=== PATIENT | female | born 1955 | race Caucasian/White ===

== ENCOUNTER → 2016-03-16 | Outpatient (CLI) | payer OTHER ==
--- NOTE | 2016-03-19 09:21 | MM ---
Reason for exam: screening (asymptomatic). Last mammogram was performed 1 year and 1 month ago. History: Patient is postmenopausal. Family history of breast cancer in mother. Benign MG stereo VAD BX RT of the right breast, July 16, 2014. Physical Findings: A clinical breast exam by your physician is recommended on an annual basis and results should be correlated with mammographic findings. MG Screening Mammo w CAD Bilateral CC and MLO view(s) were taken. Prior study comparison: February 02, 2015, bilateral MG 3d diag mammo w/cad [facility]RIC. July 07, 2014, right breast MG diagnostic mammo RT w CAD. The breast tissue is heterogeneously dense. This may lower the sensitivity of mammography. There is chronic nodularity bilaterally. No significant changes when compared with prior studies. ASSESSMENT: Benign, BI-RAD 2 RECOMMENDATION: Routine screening mammogram of both breasts in 1 year.
== END | disposition home or self-care (01) ==
LOC: RADMAMWWP 16:01
PROVIDERS: ATTEND Internal Medicine
DX: Z12.31 Encounter for screening mammogram for malignant neoplasm of breast (principal)

== ENCOUNTER → 2017-06-18 | Outpatient (CLI) | payer OTHER ==
[2017-06-18 15:04] VITALS: BP 150/91; PULSE 91; RESP 12; TEMP 97.5; BMI 30.1
--- NOTE | 2017-06-18 15:47 | P.HPOB ---
History of Present Illness H&P Date: 06/18/17 Chief Complaint: The patient is here for her routine gynecologic exam and mammogram. This is a 62-year-old G to P2 with an LMP of 2003. The patient is without gynecologic complaints and denies any postmenopausal bleeding. Review of Systems She has lost about 5 pounds over the past 2 years. She denies respiratory, cardiac, or G.I. problems. Past Medical History Past Medical History: GERD/Reflux, Hypertension Additional Past Medical History / Comment(s): Legally incapacitated, history of schizophrenia and depression. 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 She did have 2 vaginal deliveries. History of Any Multi-Drug Resistant Organisms: None Reported Past Surgical History: No Surgical Hx Reported Additional Past Surgical History / Comment(s): She is uncertain if she had a colonoscopy in the past. Past Anesthesia/Blood Transfusion Reactions: No Reported Reaction Additional Past Anesthesia/Blood Transfusion Reaction / Comment(s): HAS ONLY HAD COLONOSCOPY Past Psychological History: Depression, Schizophrenia Smoking Status: Current every day smoker (Half a pack of cigarettes per day) Past Alcohol Use History: None Reported Past Drug Use History: None Reported Additional History: She has a guardian. She is and is not seeing anybody at this time and is not sexually active. - Past Family History Father Family Medical History: Cancer (Gastric) Mother Family Medical History: Cancer (Breast), Diabetes Mellitus Medications and Allergies Home Medications Medication Instructions Recorded Confirmed Type Asenapine Maleate [Saphris] 10 mg PO DAILY 05/10/14 02/16/15 History Aspirin 81 mg PO DAILY 05/10/14 02/16/15 History Calcium Acetate [Phoslo] 667 mg PO DAILY 05/10/14 02/16/15 History DULoxetine HCL [Cymbalta] 60 mg PO QAM 05/10/14 02/16/15 History Levothyroxine Sodium [Synthroid] 50 mcg PO QAM 05/10/14 02/16/15 History Lisinopril [Zestril] 5 mg PO QAM 05/10/14 02/16/15 History Multivitamins, Thera [Theragran] 1 each PO DAILY 05/10/14 02/16/15 History Naltrexone HCl [Revia] 50 mg PO DAILY 05/10/14 02/16/15 History [place]-3 Fatty Acids/Fish Oil [Fish 1 tab PO DAILY 05/10/14 02/16/15 History Oil 1,000 mg Softgel] Ranitidine HCl [Zantac] 150 mg PO DAILY 05/10/14 02/16/15 History hydrOXYzine PAMOATE [Vistaril] 25 mg PO DAILY PRN 05/10/14 02/16/15 History Cephalexin [Keflex] 500 mg PO Q12HR #20 cap 02/16/15 Rx Ranitidine HCl [Zantac] BID 06/18/17 History Allergies Allergy/AdvReac Type Severity Reaction Status Date / Time No Known Allergies Allergy Verified 02/16/15 10:55 Exam - Vital Signs Vital signs: Vital Signs Temp Pulse Resp BP 06/18/17 14:52 97.5 F L 91 12 150/91 Intake and Output 06/18/17 06/18/17 06/18/17 06:59 14:59 22:59 Other: Weight 77.111 kg Height 5'3", BMI 30.1. This is a well-developed well-nourished white female who is alert and oriented times 3 in no acute distress. Responses to questions are very fast and short. HEENT: Within normal limits. NECK: Supple without mass or thyromegaly. CHEST AND LUNGS: Clear to auscultation. HEART: Regular rate and rhythm. BREASTS: Are without mass or discharge. AXILLARY EXAM: Negative for adenopathy. BACK: Negative for CVA tenderness. ABDOMEN: Soft, nontender, without palpable masses. PELVIC EXAM: Normal external genitalia with mild atrophy. Cervix and vagina appear normal with mild atrophy. There is no unusual discharge. There is no evidence of prolapse. The uterus is midposition, nongravid size and nontender. There are no palpable adnexal masses or tenderness. RECTAL EXAM: rectovaginal exam is negative for mass or tenderness and is negative for occult blood. EXTREMITIES: Nontender. IMPRESSION: 1. 62-year-old menopausal female with normal gynecologic exam. 2. She is [facility] for her psychiatric management. PLAN: 1. Pap smear was performed. 2. Self breast awareness was discussed. 3. Screening mammogram will be done today. 4. Osteoporosis prevention was discussed. 5. I have recommended screening colonoscopy since she does not believe she had one done in the last 10 years. She will follow-up with Dr. Bocanegra to arrange for this.
--- NOTE | 2017-06-19 11:16 | MM ---
Reason for exam: screening (asymptomatic). Last mammogram was performed 1 year and 3 months ago. History: Patient is postmenopausal. Family history of breast cancer in mother. Benign MG stereo VAD BX RT of the right breast, July 16, 2014. Physical Findings: A clinical breast exam by your physician is recommended on an annual basis and results should be correlated with mammographic findings. MG Screening Mammo w CAD Bilateral CC and MLO view(s) were taken. Prior study comparison: March 16, 2016, bilateral MG screening mammo w CAD. February 02, 2015, bilateral MG 3d diag mammo w/cad [facility]EDR[facility]. The breast tissue is heterogeneously dense. This may lower the sensitivity of mammography. Finding #1: There is a stable mass in the upper outer quadrant, posterior position of the right breast with associated biopsy marker. Finding #2: There are typically benign calcifications in both breasts. No suspicious abnormality. No significant changes in finding since March 16, 2016 and February 02, 2015. ASSESSMENT: Benign, BI-RAD 2 RECOMMENDATION: Routine screening mammogram of both breasts in 1 year.
== END | disposition home or self-care (01) ==
LOC: WWCWWP 14:33
PROVIDERS: ATTEND Obstetrics & Gynecology
DX: Z12.31 Encounter for screening mammogram for malignant neoplasm of breast (principal)
CPT/HCPCS: 77067

== ENCOUNTER 2018-01-24 02:27 | Emergency (ER) | payer OTHER ==
[2018-01-24 02:38] VITALS: BP 153/76; PULSE 75; RESP 18; TEMP 98.3
--- NOTE | 2018-01-24 02:43 | ED ---
Extremity Problem HPI - General Source: RN notes reviewed, old records reviewed <Lexus Lindquist - Last Filed: 01/24/18 03:09> - General Source: patient Mode of arrival: ambulatory Limitations: no limitations <Edith Griffith P - Last Filed: 01/26/18 01:25> - General Chief complaint: Extremity Problem,Nontraumatic Stated complaint: Needs ring removed Time Seen by Provider: 01/24/18 02:43 - Related Data Home Medications Medication Instructions Recorded Confirmed Asenapine Maleate [Saphris] 10 mg PO DAILY 05/10/14 02/16/15 Aspirin 81 mg PO DAILY 05/10/14 02/16/15 Calcium Acetate [Phoslo] 667 mg PO DAILY 05/10/14 02/16/15 DULoxetine HCL [Cymbalta] 60 mg PO QAM 05/10/14 02/16/15 Levothyroxine Sodium [Synthroid] 50 mcg PO QAM 05/10/14 02/16/15 Lisinopril [Zestril] 5 mg PO QAM 05/10/14 02/16/15 Multivitamins, Thera [Theragran] 1 each PO DAILY 05/10/14 02/16/15 Naltrexone HCl [Revia] 50 mg PO DAILY 05/10/14 02/16/15 [place]-3 Fatty Acids/Fish Oil [Fish 1 tab PO DAILY 05/10/14 02/16/15 Oil 1,000 mg Softgel] Ranitidine HCl [Zantac] 150 mg PO DAILY 05/10/14 02/16/15 hydrOXYzine PAMOATE [Vistaril] 25 mg PO DAILY PRN 05/10/14 02/16/15 Ranitidine HCl [Zantac] BID 06/18/17 Previous Rx's Medication Instructions Recorded Cephalexin [Keflex] 500 mg PO Q12HR #20 cap 02/16/15 Allergies Allergy/AdvReac Type Severity Reaction Status Date / Time No Known Allergies Allergy Verified 01/24/18 02:38 Review of Systems ROS Other: All systems not noted in ROS Statement are negative. <Lexus Lindquist - Last Filed: 01/24/18 03:09> ROS Other: All systems not noted in ROS Statement are negative. <Edith Griffith - Last Filed: 01/26/18 01:25> ROS Statement: Those systems with pertinent positive or pertinent negative responses have been documented in the HPI. Past Medical History Past Medical History: GERD/Reflux, Hypertension Additional Past Medical History / Comment(s): Legally incapacitated, history of schizophrenia and depression. 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 She did have 2 vaginal deliveries. History of Any Multi-Drug Resistant Organisms: None Reported Past Surgical History: No Surgical Hx Reported Additional Past Surgical History / Comment(s): She is uncertain if she had a colonoscopy in the past. Past Anesthesia/Blood Transfusion Reactions: No Reported Reaction Additional Past Anesthesia/Blood Transfusion Reaction / Comment(s): HAS ONLY HAD COLONOSCOPY Past Psychological History: Anxiety, Depression, Schizophrenia Smoking Status: Current some day smoker Past Alcohol Use History: None Reported Past Drug Use History: None Reported - Past Family History Father Family Medical History: Cancer (Gastric) Mother Family Medical History: Cancer (Breast), Diabetes Mellitus <Edith Griffith - Last Filed: 01/26/18 01:25> General Exam Limitations: no limitations <Edith Griffith - Last Filed: 01/26/18 01:25> Vital Signs 01/24/18 02:34 Temperature 98.3 F Pulse Rate 75 Respiratory 18 Rate Blood Pressure 153/76 O2 Sat by Pulse 96 Oximetry Medical Decision Making <Lexus Lindquist - Last Filed: 01/24/18 03:09> <Edith Griffith - Last Filed: 01/26/18 01:25> - Medical Decision Making I was available for consultation in the emergency department. The history and physical exam were done by the midlevel provider. I was consulted for this patient's care. I reviewed the case with the midlevel provider and based on their presentation of the patient, I agree with the assessment, medical decision making and plan of care as documented. (Edith Griffith) Disposition Is patient prescribed a controlled substance at d/c from ED?: No Time of Disposition: 03:11 <Lexus Lindquist - Last Filed: 01/24/18 03:09> <Edith Griffith - Last Filed: 01/26/18 01:25> Clinical Impression: Finger swelling Disposition: HOME SELF-CARE Condition: Good Instructions: Swollen Joint (ED) Additional Instructions: Ice the finger for 20 minutes every other hour for the next 1-2 days. Patient should monitor there is any worsening redness or swelling to return to emergency department for reevaluation. Have close follow-up with your primary care physician. Referrals: [facility] [Primary Care Provider] - 1-2 days
== END 2018-01-24 03:15 | disposition home or self-care (01) ==
LOC: EC 02:27
DX: M79.89 Other specified soft tissue disorders (principal); K21.9 Gastro-esophageal reflux disease without esophagitis; I10 Essential (primary) hypertension; F20.9 Schizophrenia, unspecified; F32.9 Major depressive disorder, single episode, unspecified; F41.9 Anxiety disorder, unspecified; F17.200 Nicotine dependence, unspecified, uncomplicated; Z79.82 Long term (current) use of aspirin; Z79.899 Other long term (current) drug therapy
CPT/HCPCS: 99283

== ENCOUNTER → 2018-06-24 | Outpatient (CLI) | payer OTHER ==
--- NOTE | 2018-06-25 09:44 | MM ---
Reason for exam: screening (asymptomatic). Last mammogram was performed 1 year ago. History: Patient is postmenopausal. Family history of breast cancer in mother. Benign MG stereo VAD BX RT of the right breast, July 16, 2014. Physical Findings: A clinical breast exam by your physician is recommended on an annual basis and results should be correlated with mammographic findings. MG Screening Mammo w CAD Bilateral CC and MLO view(s) were taken. Prior study comparison: June 18, 2017, bilateral MG screening mammo w CAD. March 16, 2016, bilateral MG screening mammo w CAD. The breast tissue is heterogeneously dense. This may lower the sensitivity of mammography. Finding #1: There is a 11 mm microlobulated oval mass located 6 cm from the nipple in the posterior middle position of the left breast. Finding #2: There are typically benign round calcifications in both breasts. Previous mammotome biopsy in the right breast. There is a chronic nodularity in the right breast near clip. ASSESSMENT: Incomplete: need additional imaging evaluation, BI-RAD 0 RECOMMENDATION: Special view mammogram of the left breast. If lesion persists on supplemental views, image directed ultrasound is recommended. [facility] will attempt to contact patient to return for supplemental views and ultrasound if indicated.
== END ==
LOC: RADMAMWWP 13:28
PROVIDERS: ATTEND Family Medicine
DX: Z12.31 Encounter for screening mammogram for malignant neoplasm of breast (principal)
CPT/HCPCS: 77067

== ENCOUNTER → 2018-07-03 | Outpatient (CLI) | payer OTHER ==
--- NOTE | 2018-07-04 07:53 | MM ---
Reason for exam: additional evaluation requested from abnormal screening. Last mammogram was performed less than 1 month ago. History: Patient is postmenopausal. Family history of breast cancer in mother. Benign MG stereo VAD BX RT of the right breast, July 16, 2014. Physical Findings: Nurse did not find any significant physical abnormalities on exam. MG Work Up Mamm w CAD LT Spot compression CC, spot compression MLO, and LM view(s) were taken of the left breast. Prior study comparison: June 24, 2018, bilateral MG screening mammo w CAD. June 18, 2017, bilateral MG screening mammo w CAD. The breast tissue is heterogeneously dense. This may lower the sensitivity of mammography. Left upper outer quadrant focal asymmetry persists on additional views although improves on the MLO spot compression. These results were verbally communicated with the patient and result sheet given to the patient on 07/03/18. ASSESSMENT: Incomplete: need additional imaging evaluation, BI-RAD 0 RECOMMENDATION: Ultrasound of the left breast. (upper outer quadrant)
--- NOTE | 2018-07-04 07:56 | USB ---
Reason for exam: additional evaluation requested from abnormal screening. History: Patient is postmenopausal. Family history of breast cancer in mother. Benign MG stereo VAD BX RT of the right breast, July 16, 2014. US Breast Workup Limited LT Left limited breast ultrasound including focal area of concern, retroareolar and axilla demonstrates a 0.4 x 0.3 x 0.4cm lesion too small to characterize at 12 o'clock recommendation to be made after biopsy of the 1 o'clock mass, a 0.5 x 0.3 x 0.5cm mixed lesion at 3 o'clock recommendation to be made after biopsy of the 1 o'clock mass and a 0.4 x 0.3 x 0.4cm hypoechoic lesion at 1 o'clock, corresponds with mammographic findings. These results were verbally communicated with the patient and result sheet given to the patient on 07/03/18. ASSESSMENT: Suspicious, BI-RAD 4 RECOMMENDATION: Ultrasound core biopsy of the left breast. (1 'clock) Called Dr. Harris with mammographic findings and has scheduled an appointment for the patient for 07/09/18 at 9:[address] Yarbrough. PRELIMINARY REPORT CALLED AND FAXED TO DR. YARBROUGH ON 07/04/18.
== END | disposition home or self-care (01) ==
LOC: RADMAMWWP 13:46
PROVIDERS: ATTEND Family Medicine
DX: R92.8 Other abnormal and inconclusive findings on diagnostic imaging of breast (principal)
CPT/HCPCS: 77065

== ENCOUNTER → 2018-07-23 | Day surgery (SDC) | payer OTHER ==
[2018-07-23 13:36] VITALS: RESP 16; BMI 23.3
[2018-07-23 15:09] VITALS: BP 151/73; PULSE 74; TEMP 97.6
--- NOTE | 2018-07-23 15:27 | USB ---
EXAMINATION TYPE: US biopsy breast VAD LT, MG diagnostic mammo LT wo CAD DATE OF EXAM: 07/23/2018 CLINICAL HISTORY: ABNORMAL MAMM R92.8. TECHNIQUE: Ultrasound guided core biopsy of left breast. COMPARISON: Exams dating back to 03/16/2016 FINDINGS: The procedure of ultrasound guided core biopsy was explained to the patient. Benefits, alternatives, and risks were discussed. An informed consent was then obtained. Preprocedural timeout was performed. The patient was placed in supine positioning for imaging and for the procedure. The overlying skin was prepped and draped in usual sterile fashion. 10 cc of 1% lidocaine was used as anesthetic into the skin and subcutaneous tissue up to area of concern in the left breast. Under ultrasound guidance, a 12-gauge vacuum assisted biopsy gun device was used to obtain 6 core samples. Following this, a 2 biopsy markers were marked for biopsy as it was difficult to penetrate penetrate the dense tissue in the biopsy marker appears to be placed approximately 5 mm away from the mass on the ultrasound images. The patient tolerated the procedure well without any immediate complication. The patient was kept in the radiology department for short stay after the procedure and then discharged home in stable condition. Postprocedure mammogram demonstrates the biopsy markers denoting the sonographic abnormality do not correspond to the mammographic abnormality. IMPRESSION: Successful, uncomplicated ultrasound guided core biopsy of area of concern in the left breast, full pathology results to follow. Six-month follow- up left breast ultrasound and diagnostic mammogram would be recommended if biopsy results are negative given the multiple subcentimeter hypoechoic left breast measures on the prior ultrasound and mammographic abnormality. Pathology Results: Benign LEFT BREAST AT ONE O'CLOCK POSITION, NEEDLE CORE BIOPSY FRAGMENTS: Fibrocystic changes including stromal fibrosis with intraductal mineralizations. Recommendation Follow up mammogram and ultrasound of the left breast in 6 months. MTDD
== END ==
LOC: RADUSWWP 13:11
PROVIDERS: ATTEND Surgery
DX: N60.32 Fibrosclerosis of left breast (principal); R92.8 Other abnormal and inconclusive findings on diagnostic imaging of breast; Z88.8 Allergy status to other drugs, medicaments and biological substances
CPT/HCPCS: 88305; 77065; 19083; A4648; J2001

== ENCOUNTER 2020-07-11 09:44 | Emergency (ER) | payer OTHER ==
[2020-07-11 09:52] VITALS: TEMP 98.2
--- NOTE | 2020-07-11 10:06 | ED ---
Upper Extremity HPI - General Chief Complaint: Extremity Injury, Upper Stated Complaint: Fell/Fingers Swelling (Rt Hand) Time Seen by Provider: 07/11/20 10:00 Source: patient Mode of arrival: ambulatory Limitations: no limitations - History of Present Illness Initial Comments: This is a 65-year-old female who states she fell yesterday when she was taking her trash out she fell onto her right hand he complains or right ring finger pain with swelling and ecchymosis. He did have a ring on the right hand which will require removal. She also states she scuffed up both knees he has no other complaints head neck or back pain no other injuries last tetanus shot was within 10 years MD Complaint: Injury to:: right, hand, finger - Related Data Home Medications Medication Instructions Recorded Confirmed Aspirin 81 mg PO DAILY 05/10/14 07/11/20 hydrOXYzine pamoate [Vistaril] 25 mg PO HS 05/10/14 07/11/20 lisinopriL [Zestril] 5 mg PO DAILY 05/10/14 07/11/20 Calcium(Unknown Dose) 1 tab PO BID 07/11/20 07/11/20 Ferrous Sulfate [Feosol] 325 mg PO MOWEFR 07/11/20 07/11/20 Fish Oil(Unknown Dose) 1 cap PO BID 07/11/20 07/11/20 Levothyroxine Sodium 100 mcg PO DAILY 07/11/20 07/11/20 [place] Carbonate 600 mg PO HS 07/11/20 07/11/20 Loperamide [Imodium] 2 mg PO QID PRN 07/11/20 07/11/20 Loratadine 10 mg PO DAILY 07/11/20 07/11/20 Naltrexone HCl [Revia] 50 mg PO DAILY 07/11/20 07/11/20 OLANZapine 20 mg PO HS 07/11/20 07/11/20 Pantoprazole Sodium [Protonix] 40 mg PO DAILY 07/11/20 07/11/20 Allergies Allergy/AdvReac Type Severity Reaction Status Date / Time gabapentin AdvReac Agitation/S Verified 07/11/20 11:07 uicidal Review of Systems ROS Statement: Those systems with pertinent positive or pertinent negative responses have been documented in the HPI. ROS Other: All systems not noted in ROS Statement are negative. Past Medical History Past Medical History: GERD/Reflux, Hyperlipidemia, Hypertension Additional Past Medical History / Comment(s): Legally incapacitated, history of schizophrenia and depression. 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 She did have 2 vaginal deliveries. History of Any Multi-Drug Resistant Organisms: None Reported Past Surgical History: No Surgical Hx Reported Additional Past Surgical History / Comment(s): She is uncertain if she had a colonoscopy in the past. Past Anesthesia/Blood Transfusion Reactions: No Reported Reaction Additional Past Anesthesia/Blood Transfusion Reaction / Comment(s): HAS ONLY HAD COLONOSCOPY Past Psychological History: Anxiety, Depression, Schizophrenia Smoking Status: Current some day smoker Past Alcohol Use History: None Reported Past Drug Use History: None Reported - Past Family History Father Family Medical History: Cancer Mother Family Medical History: Cancer, Diabetes Mellitus General Exam - General Exam Comments Initial Comments: This is a well-developed well-nourished awake alert oriented 3 female demonstrate a [place] Coma Scale of 15 Limitations: no limitations General appearance: alert, in no apparent distress Head exam: Present: atraumatic, normocephalic, normal inspection Eye exam: Present: normal appearance, PERRL, EOMI. Absent: scleral icterus, conjunctival injection, periorbital swelling ENT exam: Present: normal exam Neck exam: Present: normal inspection, full ROM Extremities exam: Present: tenderness, normal capillary refill, other (Ecchymosis seen over the right ring finger with edema decreased range of motion secondary to the pain additionally there is superficial abrasions above the medial aspects of both knees no step-off no crepitation for ecchymosis no knee tenderness palpation no sensorimotor vascular deficits). Absent: full ROM Back exam: Present: full ROM Psychiatric exam: Present: normal affect, normal mood Skin exam: Present: warm, dry. Absent: intact, normal color Course Vital Signs 07/11/20 09:49 Temperature 98.2 F Pulse Rate 70 Respiratory 18 Rate O2 Sat by Pulse 99 Oximetry Medical Decision Making - Medical Decision Making I did discuss the findings with the patient cannot rule out a fracture though I do suspect or maybe in the colon. Patient will be placed in a finger splint instructions for ice elevation and [id number] pain medication. Patient will follow-up with her doctor - Radiology Data Radiology results: report reviewed (Imaging reviewed as well as report no definitive fractures seen 1 Be ruled out however. Soft tissue edema noted.), image reviewed Disposition Clinical Impression: Fall, Contusion of finger of right hand, Finger fracture, right Disposition: HOME SELF-CARE Condition: Good Instructions (If sedation given, give patient instructions): Finger Fracture (ED), Contusion in Adults (ED) Additional Instructions: Ice 24-48 hours, elevation, [id number] pain medication Is patient prescribed a controlled substance at d/c from ED?: No Referrals: Martir Bocanegra MD [Primary Care Provider] - 1-2 days
--- NOTE | 2020-07-11 10:50 | XR ---
Right hand HISTORY: Pain and swelling 3 views of the right hand, correlation previous exam 09/02/2011 Soft tissue swelling is present. Bone mineralization is reduced. There are arthropathy changes at the interphalangeal joints, hypertrophic changes, marginal spurring. Questionable lucency at the lateral aspect of the proximal portion of the middle phalanx of the fourth digit of the right hand, correlat e for point tenderness. No dislocation. Suspect some cystic geode formation in the ulnar styloid, rem odeling of the radiocarpal joint. IMPRESSION: Osteoarthritis. No evident dislocation. Difficult to exclude nondisplaced fracture fourth digit.
[2020-07-11 11:24] VITALS: BP 134/79; PULSE 80; RESP 20
== END 2020-07-11 11:24 | disposition home or self-care (01) ==
LOC: EC 09:44
DX: S62.604A Fracture of unspecified phalanx of right ring finger, initial encounter for closed fracture (principal); S80.212A Abrasion, left knee, initial encounter; S80.211A Abrasion, right knee, initial encounter; E78.5 Hyperlipidemia, unspecified; F32.9 Major depressive disorder, single episode, unspecified; I10 Essential (primary) hypertension; K21.9 Gastro-esophageal reflux disease without esophagitis; W19.XXXA Unspecified fall, initial encounter; Z79.82 Long term (current) use of aspirin
CPT/HCPCS: 99283

== ENCOUNTER → 2021-04-27 | Outpatient (CLI) | payer OTHER ==
--- NOTE | 2021-05-02 12:40 | MM ---
Reason for exam: screening (asymptomatic). Last mammogram was performed 1 year and 8 months ago. History: Patient is postmenopausal. Family history of breast cancer in mother. Benign US biopsy breast VAD LT of the left breast, July 23, 2018. Benign MG stereo VAD BX RT of the right breast, July 16, 2014. Physical Findings: A clinical breast exam by your physician is recommended on an annual basis and results should be correlated with mammographic findings. MG Screening Mammo w CAD Bilateral CC and MLO view(s) were taken. Prior study comparison: September 08, 2019, bilateral MG screening mammo w CAD. March 19, 2019, left breast MG diagnostic mammo LT w CAD. The breast tissue is heterogeneously dense. This may lower the sensitivity of mammography. Previous mammotome biopsy in the right breast and in the left breast x 2. There is chronic nodularity in the right breast. Asymmetric breast tissue in the right breast is stable. There is no discrete abnormality. ASSESSMENT: Benign, BI-RAD 2 RECOMMENDATION: Routine screening mammogram of both breasts in 1 year.
== END | disposition home or self-care (01) ==
LOC: RADMAMWWP 09:44
PROVIDERS: ATTEND Family Medicine
DX: Z12.31 Encounter for screening mammogram for malignant neoplasm of breast (principal)
CPT/HCPCS: 77067

== ENCOUNTER → 2022-08-29 | Outpatient (CLI) | payer MEDICARE ==
--- NOTE | 2022-08-30 08:36 | MM ---
Reason for Exam: Screening (asymptomatic). Last mammogram was performed 1 year(s) and 4 month(s) ago. Patient History: Menarche at age 13. First Full-Term at age 30. Postmenopausal. 07/23/2018, Benign Core Biopsy on the left side. 07/16/2014, Benign Core Biopsy on the right side. Mother had breast cancer. Risk Values: Barbra 5 year model risk: 4.9%. NCI Lifetime model risk: 16.8%. Prior Study Comparison: 03/19/2019 Left Diagnostic Mammogram, [facility]. 09/08/2019 Bilateral Screening Mammogram, [facility]. 04/27/2021 Bilateral Screening Mammogram, [facility]. Tissue Density: The breast tissue is heterogeneously dense. This may lower the sensitivity of mammography. Findings: Analyzed By CAD. There is no suspicious group of microcalcifications or new suspicious mass in either breast. Overall Assessment: Benign, BI-RAD 2 Management: Screening Mammogram of both breasts in 1 year. . Patient should continue monthly self-breast exams. A clinical breast exam by your physician is recommended on an annual basis. This exam should not preclude additional follow-up of suspicious palpable abnormalities. Note on Barbra scores and lifetime risk: 1. A Barbra score greater than 3% is considered moderate risk. If this is the case, consider specialist referral to assess eligibility for a risk reducing agent. 2. If overall lifetime risk for the development of breast cancer is 20% or higher, the patient may qualify for future screening with alternating mammogram and breast MRI. Electronically signed and approved by: Joaquim Kenyon M.D. Radiologis
--- NOTE | 2022-08-30 09:35 | BD ---
EXAMINATION TYPE: Axial Bone Density DATE OF EXAM: 08/29/2022 CLINICAL HISTORY: 67 years old Female. ICD-10 CODE: [id number] Height: 61.5 Weight: 167.8 FRAX RISK QUESTIONS: Alcohol (3 or more units per day): no Family History (Parent hip fracture): no Glucocorticoids (More than 3mos): no History of Fracture in Adulthood: no Secondary Osteoporosis: 1. Type 1 Diabetes: no 2. Hyperthyroidism: no 3. Menopause before 45: no 4. Malnutrition: no 5. Chronic liver disease: no Rheumatoid Arthritis: no Current Tobacco Use: no RISK FACTORS HISTORY OF: Hip Fracture (Right/Left): no Spine Fracture: no History of Wrist Fracture: no Surgery to Spine/Hip(right/left)/Wrist (right/left): no Family History of Osteoporosis: no Active: yes Diet low in dairy products/other sources of calcium: no Postmenopausal woman: no Take estrogen and/or progesterone medications: no Lost more than 2 inches in height since high school: yes Frequent falls: no Poor Health: no Hyperparathyroidism: no Adrenal Insufficiency: no MEDICATIONS: Prednisone or other steroids: no Thyroid Medications: Synthroid How Long: past 5 years Osteoporosis Medications: no Additional Medications: Cholesterol Meds, xanax, Calcium Additional History: EXAM MEASUREMENTS: Bone mineral densitometry was performed using the [employer] System. Bone mineral density as measured about the Lumbar spine is: ----- L1-L4(G/cm2): 1.016 T Score Values are as follows: ----- L1: -2.4 ----- L2: -1.3 ----- L3: -1.2 ----- L4: -0.9 ----- L1-L4: -1.4 Z Score Values are as follows: ----- L1: -1.2 ----- L2: -0.1 ----- L3: 0.0 ----- L4: 0.3 ----- L1-L4: -0.1 Baseline Study Bone mineral density about the R hip (g/cm2): 0.864 Bone mineral density about the L hip (g/cm2): 0.845 T Score values are as follows: -----R Neck: -1.7 -----L Neck: -2.0 -----R Total: -1.1 -----L Total: -1.3 Z Score values are as follows: -----R Neck: -0.4 -----L Neck: -0.7 -----R Total: -0.1 -----L Total: -0.3 Baseline Study FRAX%s: The graph provided illustrates a 10.7% chance for a major osteoporotic fx and a 1.7% chance f or the hips probability for fx in 10 years time. IMPRESSION: Osteopenia (T Score between -2.5 and -1). There is slightly increased risk of fracture and the patient may be considered for treatment. Re-Screen 2-5 years. NOTE: T-SCORE=SD OF THE YOUNG ADULT MEAN.
== END | disposition home or self-care (01) ==
LOC: RADMAMWWP 10:59
PROVIDERS: ATTEND Emergency Medicine
DX: Z12.31 Encounter for screening mammogram for malignant neoplasm of breast (principal); Z13.820 Encounter for screening for osteoporosis; M85.89 Other specified disorders of bone density and structure, multiple sites; Z78.0 Asymptomatic menopausal state; Z80.3 Family history of malignant neoplasm of breast
CPT/HCPCS: 77063; 77067; 77080

== ENCOUNTER → 2023-08-07 | Outpatient (CLI) | payer OTHER ==
--- NOTE | 2023-08-07 13:30 | CTL ---
EXAMINATION TYPE: CT Low Dose Lung DATE OF EXAM ORDERED: 08/07/2023 HISTORY: 58-year-old female Z1 2.2, F1 7.210, current smoker with a 35 pack-year history. Lung cancer screening CT DLP: 86.[address] CTDI: 2.4 mGy Automated exposure control for dose reduction was used. SCREENING VISIT: Baseline COMPARISON: None TECHNIQUE: Low dose computed tomography scan was performed through the chest at 1 mm thick sections a nd reconstructed images in multiple planes at 1 mm and [address] DIAGNOSTIC QUALITY: Satisfactory FINDINGS: Heart normal size with trace pericardial effusion. Borderline ectatic aortic root at 3.6 cm. Bovine configuration to the aortic arch. No thoracic lymph adenopathy by CT size criteria. Stranding in the structure show scarring in the lower lungs. Mild diffuse bronchial wall thickening. [id number] emphysematous change. Right apical pleural-parenchymal scarring 4 mm lateral left midlung pulmonary nodule, axial image 137. 4 mm lateral left upper lobe pulmonary nodule, axial image 51. Tiny calcified granuloma right lower lobe, axial image 174. There is a fluid column seen within the thoracic esophagus along with a small to moderate-sized hiata l hernia. Otherwise, visualized upper abdomen shows moderate stool. Bones: No osseous destructive process. IMPRESSION: 1. LungRADS 2, benign. A couple 4 mm and smaller pulmonary nodules on baseline screening. 2. COPD with ippe-ej-krthysoe emphysema and scattered strandy interstitial scarring in the lower lung s. 3. Small to moderate sized hiatal hernia. Given fluid within the thoracic esophagus, correlate for ga stroesophageal reflux disease. CT LUNG RAD AND CT CHEST RECOMMENDATION: Lung-Rad 2 Benign Appearance or Behavior: Continue annual sc reening with LDCT in 12 months. S Modifier (other clinically significant findings): None
== END | disposition home or self-care (01) ==
LOC: RADCTMAIN 11:28
PROVIDERS: ATTEND Internal Medicine Hospice and Palliative Medicine
DX: Z12.2 Encounter for screening for malignant neoplasm of respiratory organs (principal); J43.9 Emphysema, unspecified; K44.9 Diaphragmatic hernia without obstruction or gangrene; F17.210 Nicotine dependence, cigarettes, uncomplicated
CPT/HCPCS: 71271

== ENCOUNTER 2023-09-11 08:13 | Day surgery (SDC) | payer OTHER ==
[~2023-09-11 08:13] MED LIST: LIDOCAINE 1% (10MG/ML) FOR IV START INTRADERMA PRN
[2023-09-11 08:39] VITALS: TEMP 97
[2023-09-11] MEDS: LACTATED RINGERS 1,000 ML IV SCH (08:54)
[2023-09-11] MEDS: IV FLUID CONTINUATION 1,000 ML IV ONE (08:55)
[2023-09-11 08:57] LABS: Glucose,Whole Blood 116 mg/dL (70-110)
[2023-09-11] MEDS ORDERED: PROPOFOL 10 MG/ML 20 ML VIAL IV ONE (09:07)
--- NOTE | 2023-09-11 09:32 | P.PCN ---
Date of Procedure: 09/11/23 Procedure(s) Performed: BRIEF HISTORY: Patient is a 68-year-old pleasant white female scheduled for an elective colonoscopy as a part of screening for colon cancer. PROCEDURE PERFORMED: Colonoscopy. With biopsy and snare polypectomy PREOPERATIVE DIAGNOSIS: Screening for colon cancer. IV sedation per Anesthesia. PROCEDURE: After informed consent was obtained, the patient, was brought into the endoscopy unit. IV sedation was administered by Anesthesia under continuous monitoring. Digital rectal examination was normal. Initially the Olympus CF-160 flexible video colonoscope was then inserted in the rectum, gradually advanced into the cecum without any difficulty. Careful examination was performed as the scope was gradually being withdrawn. Ileocecal valve and the appendiceal orifice were visualized and appeared normal. Prep was excellent. Mucosa of the cecum, appeared normal. The ascending colon there was a 3 mm polyp that was removed by cold biopsy. Ascending colon, transverse colon, descending colon, sigmoid colon, and rectum appeared normal. In the rectosigmoid colon was a 6 mm polyp that was removed by cold snare polypectomy. Retroflexion was performed in the rectum and no lesions were seen. The patient tolerated the procedure well. IMPRESSION: 3 mm cecal polyp status post cold biopsy 6 mm rectosigmoid polyp status post cold snare polypectomy RECOMMENDATIONS: Findings of this examination were discussed with the patient as well as her family. She was advised to follow-up with the biopsy results. If the biopsy reveals adenoma she can have repeat 5 years..
[2023-09-11 09:39] VITALS: RESP 16
[2023-09-11 09:56] VITALS: BP 138/84; PULSE 66
== END 2023-09-11 10:08 | disposition home or self-care (01) ==
LOC: ORWHC2ENDO 08:13 → EEVIPCON 09:30 → ORWHC2ENDO 10:08
PROVIDERS: ATTEND Internal Medicine Gastroenterology
DX: Z12.11 Encounter for screening for malignant neoplasm of colon (principal); K62.1 Rectal polyp; K52.9 Noninfective gastroenteritis and colitis, unspecified; Z80.0 Family history of malignant neoplasm of digestive organs
CPT/HCPCS: 45380; 45385; J2704; 88305

== ENCOUNTER → 2024-08-12 | Outpatient (CLI) | payer OTHER ==
--- NOTE | 2024-08-12 12:32 | CTL ---
EXAMINATION TYPE: CT Low Dose Lung DATE OF EXAM: 08/12/2024 11:25 AM COMPARISON: 08/07/2023 CLINICAL INDICATION: Female, 69 years old with history of Z72.0, HISTORY OF SMOKER, History of tobacc o use. TECHNIQUE: Low Dose CT Lung Screening, Low dose computed tomography scan was performed through the est at 1 millimeter thick sections and reconstructed images in the coronal plane at 1 mm thick sectio ns. IV CONTRAST USED: None. SCREENING VISIT: Second visit CT DLP: 84.4 mGycm, Automated exposure control for dose reduction was used. CT CTDI: 2.2 mGy FINDINGS: CT DIAGNOSTIC QUALITY: Satisfactory LUNG NODULES: There are a couple of stable 7 4 mm pulmonary nodules seen. No new pulmonary nodules id entified. No evidence for mass or infiltrate. LUNGS: COPD: Severity: Mild Fibrosis: Severity:None Lymph nodes: None Other findings: None RIGHT PLEURAL SPACE: Effusion: None Calcification: None Thickening: None Pneumothorax: None LEFT PLEURAL SPACE: Effusion: None Calcification: None Thickening: None Pneumothorax: None HEART: * Size within normal limits. * No significant coronary artery calcifications. OTHER FINDINGS: Upper abdomen: Moderate fixed hiatal hernia. Bony thorax: Degenerative changes Supraclavicular region: No significant abnormalityOther: No significant abnormalityI IMPRESSION: 1. No clinically significant pulmonary nodules. 2. Mild emphysema. CT LUNG RAD AND CT CHEST RECOMMENDATION: Lung-Rad 2 Benign Appearance or Behavior: Continue annual sc reening with LDCT in 12 months. S Modifier (other clinically significant findings): [facility], , 08/12/2024 12:30 PM
== END | disposition home or self-care (01) ==
LOC: RADCTMAIN 10:41
PROVIDERS: ATTEND Internal Medicine Hospice and Palliative Medicine
DX: Z12.2 Encounter for screening for malignant neoplasm of respiratory organs (principal); J43.9 Emphysema, unspecified; Z87.891 Personal history of nicotine dependence
CPT/HCPCS: 71271